=== PATIENT | female | born 1985 | race Caucasian/White ===

== ENCOUNTER 2019-01-21 21:50 | Inpatient (IN) | payer OTHER ==
[2019-01-21] MEDS: morphine 2 MG INJ IV (22:55)
[2019-01-21] MEDS: SOD CHLORIDE 0.9% 1,000 ML IV (22:55)
[2019-01-21] MEDS ORDERED: ACETAMINOPHEN 325 MG TAB PO (23:00)
[2019-01-21] MEDS ORDERED: NACL 0.9% 3 ML SYG IV (23:00)
[2019-01-21] MEDS ORDERED: HYDROCODONE/APAP (5/325) TAB PO (23:00)
[2019-01-21] MEDS ORDERED: ONDANSETRON 4 MG INJ IV (23:00)
[2019-01-21] MEDS ORDERED: DOCUSATE SODIUM 100 MG CAP PO (23:00)
[2019-01-21] MEDS ORDERED: BISACODYL (EC) 5 MG TAB PO (23:00)
[2019-01-21] MEDS: PIPER-TAZO 3.375 GM IV (PMX) 100 ML IVPB (23:06)
[2019-01-22] MEDS: morphine 2 MG INJ IV ×6 (03:19→23:13)
[2019-01-22 05:27] LABS: ADD MAN DIFF? NO
[2019-01-22 05:35] LABS: BASOPHILS % 0.3 % (0.0-2.0); EOSINOPHILS # 0.2 10^3/ul (0.0-0.5); EOSINOPHILS % 1.4 % (0.0-7.0); HEMOGLOBIN 11.9 g/dl (12.0-16.0); LYMPHOCYTES # 1.7 10^3/ul (0.8-2.9); MEAN CORPUSCULAR HEMOGLOBIN 40.1 pg (29.0-33.0); MEAN CORPUSCULAR VOLUME 114.5 fl (82.0-101.0); MEAN PLATELET VOLUME 9.7 fl (7.4-10.4); MONOCYTE # 0.6 10^3/ul (0.3-0.9); MONOCYTES % 5.3 % (0.0-11.0); NEUTROPHIL # 9.6 10^3/ul (1.6-7.5); NEUTROPHILS % 78.3 % (39.0-77.0); PLATELET COUNT 280 10^3/UL (140-415); RED BLOOD COUNT 2.97 10^6/ul (4.20-5.40); RED CELL DISTRIBUTION WIDTH 12.3 % (11.5-14.5)
[2019-01-22 05:35] LABS: WHITE BLOOD COUNT 12.2 10^3/ul (4.8-10.8)
[2019-01-22] MEDS: PIPER-TAZO 3.375 GM IV (PMX) 100 ML IVPB ×2 (05:36→13:32)
[2019-01-22 06:04] LABS: ALANINE AMINOTRANSFERASE 41 IU/L (13-69); ALBUMIN 3.1 g/dl (3.3-4.9); ALBUMIN/GLOBULIN RATIO 0.96; ALKALINE PHOSPHATASE 69 IU/L (42-121); ANION GAP 6 (5-13); ASPARTATE AMINO TRANSFERASE 30 IU/L (15-46); BILIRUBIN,INDIRECT 0.9 mg/dl (0-1.1); BILIRUBIN,TOTAL 0.9 mg/dl (0.2-1.3); BLOOD UREA NITROGEN 5 mg/dl (7-20); CALCIUM 8.8 mg/dl (8.4-10.2); CARBON DIOXIDE 27 mmol/L (21-31); CHLORIDE 102 mmol/L (97-110); CHOL/HDL RATIO 4.4 RATIO; CHOLESTEROL 150 mg/dl (100-200); CREATININE 0.65 mg/dl (0.44-1.00); Estimated GFR > 60 mL/min (>60); GLUCOSE 106 mg/dl (70-220); HDL CHOLESTEROL 34 mg/dl (34-82); LDL CHOLESTEROL,CALCULATED 97 mg/dl; MAGNESIUM 1.7 mg/dl (1.7-2.5); SODIUM 135 mmol/L (135-144); TOTAL PROTEIN 6.3 g/dl (6.1-8.1); TRIGLYCERIDES 97 mg/dl (0-149)
[2019-01-22 08:28] LABS: FOLATE 2.3 ng/ml (2.8-20.0)
[2019-01-22] MEDS ORDERED: MIDAZOLAM 1 MG/ML 2 ML INJ (11:06)
[2019-01-22] MEDS ORDERED: FENTAnyl 50 MCG/ML VIAL (11:06)
[2019-01-22] MEDS: LIDOCAINE 1%/EPI 30 ML INJ (11:55)
[2019-01-22] MEDS: BUPIVACAINE 0.5% (SDV) 30 ML INJ (11:55)
[2019-01-22] MEDS ORDERED: ONDANSETRON 4 MG INJ (12:07)
[2019-01-22] MEDS ORDERED: PROPOFOL 20 ML (12:07)
[2019-01-22] MEDS ORDERED: LIDOCAINE 2% (SDV) 5 ML INJ (12:07)
[2019-01-22] MEDS ORDERED: CEFAZOLIN 1 GM INJ (12:07)
[2019-01-22] MEDS ORDERED: LABETALOL HCL 20MG INJ IV (12:30)
[2019-01-22] MEDS ORDERED: MEPERIDINE 25 MG INJ IV (12:30)
[2019-01-22] MEDS ORDERED: METOCLOPRAMIDE 10 MG INJ IV (12:30)
[2019-01-22] MEDS ORDERED: HYDROmorphONE 1 MG/5 ML IV SYRINGE IV ×2 (12:30)
[2019-01-22] MEDS ORDERED: ONDANSETRON 4 MG INJ IV (12:30)
[2019-01-22] MEDS ORDERED: DIPHENHYDRAMINE 50 MG INJ IV (12:30)
[2019-01-22] MEDS ORDERED: FENTAnyl 50 MCG/ML VIAL IV (12:30)
[2019-01-22] MEDS ORDERED: hydrALAzine 20 MG INJ IV (12:30)
[2019-01-22] MEDS ORDERED: ACETAMINOPHEN 325 MG TAB PO (13:00)
[2019-01-22] MEDS ORDERED: HYDROmorphONE 0.5 MG/0.5 ML SYG IV (13:00)
[2019-01-22] MEDS ORDERED: KETOROLAC 30 MG INJ IV (13:00)
[2019-01-22] MEDS: SOD CHLORIDE 0.9% 1,000 ML IV (13:32)
[2019-01-22 14:02] LABS: ADD MAN DIFF? NO
[2019-01-22 14:05] LABS: WHITE BLOOD COUNT 12.4 10^3/ul (4.8-10.8)
[2019-01-22 14:05] LABS: BASOPHIL # 0.1 10^3/ul (0.0-0.1); BASOPHILS % 0.4 % (0.0-2.0); EOSINOPHILS # 0.1 10^3/ul (0.0-0.5); EOSINOPHILS % 0.6 % (0.0-7.0); HEMOGLOBIN 11.8 g/dl (12.0-16.0); LYMPHOCYTES # 1.4 10^3/ul (0.8-2.9); LYMPHOCYTES % 11.3 % (15.0-51.0); MEAN CORPUSCULAR HEMOGLOBIN 39.7 pg (29.0-33.0); MEAN CORPUSCULAR HGB CONC 34.7 g/dl (32.0-37.0); MEAN CORPUSCULAR VOLUME 114.5 fl (82.0-101.0); MEAN PLATELET VOLUME 9.4 fl (7.4-10.4); MONOCYTE # 0.7 10^3/ul (0.3-0.9); MONOCYTES % 5.6 % (0.0-11.0); NEUTROPHIL # 10.1 10^3/ul (1.6-7.5); NEUTROPHILS % 81.5 % (39.0-77.0); NUCLEATED RED BLOOD CELLS% 0.2 /100WBC (0.0-0.0); PLATELET COUNT 287 10^3/UL (140-415); RED BLOOD COUNT 2.97 10^6/ul (4.20-5.40); RED CELL DISTRIBUTION WIDTH 12.4 % (11.5-14.5)
[2019-01-22] MEDS: CYANOCOBALAMIN 1000 MCG INJ IM (14:16)
[2019-01-22] MEDS: FOLIC ACID 1 MG TAB PO (14:16)
[2019-01-22] MEDS: AMPICILLIN/SULB 3 GM/NS (PMX) 100 ML IVPB ×2 (14:25→20:30)
[2019-01-23] MEDS: AMPICILLIN/SULB 3 GM/NS (PMX) 100 ML IVPB ×2 (02:30→08:12)
[2019-01-23] MEDS: morphine 2 MG INJ IV ×4 (04:03→18:22)
[2019-01-23] MEDS: SOD CHLORIDE 0.9% 1,000 ML IV (06:10)
[2019-01-23] MEDS: ENOXAPARIN 40 MG/0.4 ML SYG SC (06:40)
[2019-01-23] MEDS: FOLIC ACID 1 MG TAB PO (08:12)
[2019-01-23] MEDS: CYANOCOBALAMIN 1000 MCG INJ IM (08:12)
[2019-01-23] MEDS ORDERED: BISACODYL (EC) 5 MG TAB PO (12:00)
[2019-01-23 12:28] LABS: ADD MAN DIFF? NO
[2019-01-23 12:33] LABS: WHITE BLOOD COUNT 8.7 10^3/ul (4.8-10.8)
[2019-01-23 12:33] LABS: BASOPHILS % 0.3 % (0.0-2.0); EOSINOPHILS # 0.1 10^3/ul (0.0-0.5); EOSINOPHILS % 0.9 % (0.0-7.0); HEMATOCRIT 32.8 % (37.0-47.0); HEMOGLOBIN 11.1 g/dl (12.0-16.0); LYMPHOCYTES # 1.8 10^3/ul (0.8-2.9); LYMPHOCYTES % 20.5 % (15.0-51.0); MEAN CORPUSCULAR HEMOGLOBIN 38.9 pg (29.0-33.0); MEAN CORPUSCULAR HGB CONC 33.8 g/dl (32.0-37.0); MEAN CORPUSCULAR VOLUME 115.1 fl (82.0-101.0); MEAN PLATELET VOLUME 9.2 fl (7.4-10.4); MONOCYTE # 0.6 10^3/ul (0.3-0.9); MONOCYTES % 6.5 % (0.0-11.0); NEUTROPHIL # 6.2 10^3/ul (1.6-7.5); NEUTROPHILS % 71.1 % (39.0-77.0); NUCLEATED RED BLOOD CELLS% 0.2 /100WBC (0.0-0.0); PLATELET COUNT 303 10^3/UL (140-415); RED BLOOD COUNT 2.85 10^6/ul (4.20-5.40); RED CELL DISTRIBUTION WIDTH 12.2 % (11.5-14.5)
[2019-01-23 12:50] LABS: ANION GAP 6 (5-13); BLOOD UREA NITROGEN 3 mg/dl (7-20); CALCIUM 8.5 mg/dl (8.4-10.2); CARBON DIOXIDE 26 mmol/L (21-31); CHLORIDE 103 mmol/L (97-110); Estimated GFR > 60 mL/min (>60); GLUCOSE 95 mg/dl (70-220); MAGNESIUM 1.8 mg/dl (1.7-2.5); PHOSPHORUS 2.9 mg/dl (2.5-4.9); POTASSIUM 3.9 mmol/L (3.5-5.1); SODIUM 135 mmol/L (135-144)
[2019-01-23] MEDS: HYDROCODONE/APAP (5/325) TAB PO ×2 (15:25→21:07)
[2019-01-23] MEDS: POLYETHYLENE GLYCOL 17 GM PACKET PO (21:00)
[2019-01-24] MEDS: morphine 2 MG INJ IV ×3 (02:44→13:17)
[2019-01-24] MEDS: ENOXAPARIN 40 MG/0.4 ML SYG SC (06:35)
[2019-01-24] MEDS: POLYETHYLENE GLYCOL 17 GM PACKET PO ×2 (08:19→21:00)
[2019-01-24] MEDS: FOLIC ACID 1 MG TAB PO (08:19)
[2019-01-24] MEDS: CYANOCOBALAMIN 1000 MCG INJ IM (08:20)
[2019-01-24] MEDS: metroNIDAZOLE 500 MG TAB PO ×2 (13:19→21:26)
[2019-01-24] MEDS: CIPROFLOXACIN 250 MG TAB PO (17:53)
[2019-01-24] MEDS: HYDROCODONE/APAP (5/325) TAB PO (17:56)
[2019-01-25] MEDS: morphine 2 MG INJ IV (05:16)
[2019-01-25] MEDS: CIPROFLOXACIN 250 MG TAB PO (05:19)
[2019-01-25] MEDS: metroNIDAZOLE 500 MG TAB PO (05:19)
[2019-01-25] MEDS: ENOXAPARIN 40 MG/0.4 ML SYG SC (05:20)
[2019-01-25 05:52] LABS: ADD MAN DIFF? NO
[2019-01-25 05:59] LABS: WHITE BLOOD COUNT 6.2 10^3/ul (4.8-10.8)
[2019-01-25 05:59] LABS: BASOPHIL # 0.1 10^3/ul (0.0-0.1); BASOPHILS % 0.8 % (0.0-2.0); EOSINOPHILS # 0.2 10^3/ul (0.0-0.5); EOSINOPHILS % 3.6 % (0.0-7.0); HEMATOCRIT 32.3 % (37.0-47.0); HEMOGLOBIN 11.4 g/dl (12.0-16.0); LYMPHOCYTES # 1.6 10^3/ul (0.8-2.9); LYMPHOCYTES % 25.9 % (15.0-51.0); MEAN CORPUSCULAR HEMOGLOBIN 40.6 pg (29.0-33.0); MEAN CORPUSCULAR HGB CONC 35.3 g/dl (32.0-37.0); MEAN CORPUSCULAR VOLUME 114.9 fl (82.0-101.0); MEAN PLATELET VOLUME 9.5 fl (7.4-10.4); MONOCYTE # 0.6 10^3/ul (0.3-0.9); MONOCYTES % 9.2 % (0.0-11.0); NEUTROPHIL # 3.6 10^3/ul (1.6-7.5); NEUTROPHILS % 57.9 % (39.0-77.0); NUCLEATED RED BLOOD CELLS% 0.6 /100WBC (0.0-0.0); PLATELET COUNT 330 10^3/UL (140-415); RED BLOOD COUNT 2.81 10^6/ul (4.20-5.40); RED CELL DISTRIBUTION WIDTH 12.1 % (11.5-14.5)
[2019-01-25 06:14] LABS: ANION GAP 5 (5-13); BLOOD UREA NITROGEN 6 mg/dl (7-20); CALCIUM 8.8 mg/dl (8.4-10.2); CARBON DIOXIDE 27 mmol/L (21-31); CHLORIDE 105 mmol/L (97-110); CREATININE 0.59 mg/dl (0.44-1.00); Estimated GFR > 60 mL/min (>60); GLUCOSE 105 mg/dl (70-220); POTASSIUM 3.9 mmol/L (3.5-5.1); SODIUM 137 mmol/L (135-144)
[2019-01-25 06:15] LABS: MAGNESIUM 1.9 mg/dl (1.7-2.5)
[2019-01-25] MEDS: FOLIC ACID 1 MG TAB PO (08:25)
[2019-01-25] MEDS: CYANOCOBALAMIN 1000 MCG INJ IM (08:25)
[2019-01-25] MEDS: POLYETHYLENE GLYCOL 17 GM PACKET PO (08:26)
[2019-01-25] MEDS: HYDROCODONE/APAP (5/325) TAB PO (08:26)
== END 2019-01-25 13:08 | disposition home health service (06) | DRG 346 ==
LOC: PP2 21:50
PROC: 0D9P0ZZ Drainage of Rectum, Open Approach (ICD-10-PCS; principal; 2019-01-22 10:30)
DX: K61.1 Rectal abscess (principal); E66.9 Obesity, unspecified; Z68.31 Body mass index [BMI] 31.0-31.9, adult; D51.3 Other dietary vitamin B12 deficiency anemia; D52.0 Dietary folate deficiency anemia
CPT/HCPCS: 80048; 80053; 80061; 82607; 82746; 83036; 83735; 84100; 84443; 84703; 85025; 87070; 87075; 87081; 87102; 87116